=== PATIENT | female | born 1940 | race Caucasian/White ===

== ENCOUNTER 2022-02-22 18:00 | Emergency (ER) | payer MEDICARE, OTHER, SELFPAY ==
[2022-02-22 18:04] VITALS: BP 154/67; PULSE 85; RESP 16; TEMP 36.6; O2SAT 99
--- NOTE | 2022-02-22 18:51 | ED.FALL ---
HPI - Fall General Chief Complaint: Fall Stated Complaint: fall Time Seen by Provider: 02/22/22 18:16 History of Present Illness HPI Narrative: 81-year-old female presents the emergency room complaints of left leg pain. Patient states that she was on a ladder cutting landscape earlier today when she was trying to avoid a wasp. Patient states that she fell down 2 stairs of the ladder and landed in [place]. Patient is complaining of left posterior thigh pain and large skin tear to left leblanc. Patient was ambulatory, with pain. Related Data Home Medications Medication Instructions Recorded Confirmed diltiazem HCl 120 mg 120 mg PO BID 10/23/21 capsule,extended release 12 hr lansoprazole 30 mg oral mg PO 10/23/21 suspension,delayed release levothyroxine 100 mcg capsule 100 mcg PO DAILY 10/23/21 Allergies Allergy/AdvReac Type Severity Reaction Status Date / Time No Known Allergies Allergy Verified 02/22/22 18:08 Review of Systems Review of Systems: CONSTITUTIONAL: Denies fever, chills, or sweats. EYES: Denies visual changes, redness, or discharge. ENT: Denies rhinorrhea, congestion, sore throat, or otalgia. CARDIOVASCULAR: Denies chest pain, palpitations, or edema. RESPIRATORY: Denies cough or dyspnea. GASTROINTESTINAL: Denies abdominal pain, nausea, vomiting, or diarrhea. GENITOURINARY: Denies dysuria or hematuria. SKIN: Reports skin tear to left leblanc MUSCULOSKELETAL: Denies back pain, joint pain, or myalgia. NEUROLOGIC: Denies headache, numbness, dizziness, or weakness. PSYCHIATRIC: Denies anxiety or depression. PMFSH Past Medical History Medical History GERD (gastroesophageal reflux disease) Heart disease Thyroid disorder Surgical History Surgical History History of hip surgery History of hysterectomy History of repair of rotator cuff Family History Family History Father Cancer Mother Heart disease Sibling Cancer Cerebrovascular accident Social History Social History Smoking status: Never smoker Alcohol intake: never Exam Narrative: GENERAL: Well-appearing, well-nourished, no physical limitations, and in no acute distress. HEAD: Normocephalic, atraumatic. EYES: Conjunctivae normal, PERRLA and EOMI. CHEST: Clear to auscultation. No respiratory distress. No wheezes rales or rhonchi. No tenderness. HEART: Regular rate and rhythm. No murmur heard. Normal peripheral pulses. No cervical/thoracic/lumbar tenderness, step-offs, bony abnormality; FROM EXTREMITIES: Normal range of motion. Left lower extremity: Full range of motion of the left hip and knee joints, strength is 5/5, neurovascular is intact SKIN: 8 cm x 6 cm ovular skin tear to the anterior left leblanc NEURO: No focal deficits. Alert and oriented x3. MAEW. CN's II-XI intact bilaterally, normal gait PSYCH: Cooperative. Normal mood and affect. Course Vital Signs Vital signs: Vital Signs Temperature 36.6 C 02/22/22 18:04 Pulse Rate 85 02/22/22 18:04 Respiratory Rate 16 02/22/22 18:04 Blood Pressure 154/67 H 02/22/22 18:04 Pulse Oximetry 99 02/22/22 18:04 Temperature 36.6 C 02/22/22 18:04 Pulse Rate 85 02/22/22 18:04 Respiratory Rate 16 02/22/22 18:04 Blood Pressure 154/67 H 02/22/22 18:04 Pulse Oximetry 99 02/22/22 18:04 Discharge Plan Discharge Clinical Impression: Muscle strain of left thigh, Skin tear of left lower leg without complication Patient Disposition: Home, Self-Care Condition: Stable Instructions: Antibiotic Form, Hamstring Injury (ED), Skin Avulsion (ED) Additional Instructions: May supplement your on pain medicine with ibuprofen or Aleve. Recommend using a heating pad to the affected area for 20 to 30 minutes at a time. Rest, gen
[2022-02-22] MEDS: HYDROcodone/acetaminophen (*CRX) 5-325 MG TABLET 1 TAB PO (19:05)
[2022-02-22] MEDS: CEPHALEXIN 500 MG CAPSULE PO (19:05)
[2022-02-22 19:34] VITALS: BP 150/70; PULSE 70; RESP 16; O2SAT 98
== END 2022-02-22 19:34 | disposition home or self-care (01) ==
LOC: ANHED 19:21
PROVIDERS: Emergency Provider Nurse Practitioner Family; PCP Internal Medicine
DX: S76.912A Strain of unspecified muscles, fascia and tendons at thigh level, left thigh, initial encounter (principal); S81.812A Laceration without foreign body, left lower leg, initial encounter; I51.9 Heart disease, unspecified; K21.9 Gastro-esophageal reflux disease without esophagitis; E07.9 Disorder of thyroid, unspecified; Z90.710 Acquired absence of both cervix and uterus; W11.XXXA Fall on and from ladder, initial encounter
CPT/HCPCS: 99283; A9270